=== PATIENT | male | born 1935 | race Caucasian/White ===

== ENCOUNTER 2016-06-23 16:40 | Emergency (ER) | payer OTHER ==
[~2016-06-23] VITALS: Ht 172.7 cm; Wt 76.7 kg
[~2016-06-23 16:40] MED LIST: ALFU10TA30 PO; AMT50 PO; ASPI81TA28 PO; ATOR10TA88 PO; BIMA0.038; CLX20 PO; GLC500 PO; LACT10SO17 PO; LINA1CAP PO; MULT-506 PO; [UNRECOGNIZED DRUG - OTHER] PO; alprazolam PO; systane
[2016-06-23 16:45] VITALS: Ht 172.7 cm; Wt 76.7 kg
--- NOTE | 2016-06-23 17:17 | EMERGENCY ROOM VISIT NOTE ---
History Report prepared by Andrew: Timothy Hernandez Under the Supervision of: Dr. Timothy Parker M.D. First contact with patient: 16:48 Chief Complaint: REFERRED BY DOCTOR Stated Complaint: ANXIETY ATTACKS, MENTAL HEALTH EVAL History of Present Illness The patient is a 81 year old male who presents to the Emergency Room with complaints of a mental health evaluation today. Per the spring encaser, he was sent in by his therapist in [place] for depression and suicidal ideations beginning in May 2016. Per the patient and his , he is in the process of divorce, and has had stress recently. He notes having anxiety attacks before in the past and a fear of being alone, as early as from 19 years of age. His therapist has provided medication to help with anxiety attacks. He admits to taking extra medication during the night when he is having difficulty sleeping. The patient denies taking Aspiring or Tylenol. He notes mild alcohol consumption. 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 He denies any history of heart disease. He will occasionally take a Naproxen for baseline hip pain. He has not been eating or sleeping well recently. The patient denies any chest pain or shortness of breath. His therapist sent him over to the ER today for suicidal ideations. The patient admits to having suicidal thoughts or plans to hurt himself. He notes the only thing he could think of would be to use a gun. Source of History: patient, spouse/significant other, nursing staff Onset: today Position: head Quality: other (mental health evaluation) Timing: other (episode) Associated Symptoms: No SOB, No chest pain Note: The patient denies having suicidal ideations. Review of Systems See HPI for pertinent positives & negatives. A total of 10 systems reviewed and were otherwise negative. Past Medical & Surgical Medical Problems: (1) History of anxiety (2) History of depression (3) Prostate cancer Old medical records were reviewed. Nurse's notes were reviewed and I agree with. Family History No pertinent family history stated. Social History Smoking Status: Never Smoker Marital Status: Current/Historical Medications Scheduled Alfuzosin Hcl (Uroxatral), 10 MG PO DAILY Alprazolam (Xanax), 1 MG PO QAM Alprazolam (Xanax), 0.25 MG PO prn ud Aspirin (Aspirin Ec), 81 MG PO DAILY Atorvastatin (Lipitor), 10 MG PO DAILY Brimonidine Tartrate-Timolol M (Combigan), 1 DROP OPB BID Linaclotide (Linzess), 1 TAB PO QAM Metformin Hcl (Glucophage), 500 MG PO BID Multivitamin (Multivitamin), 1 TAB PO DAILY Travoprost (Travatan Z), 1 DROPS OP HS Venlafaxine Hcl (Effexor Xr), 150 MG PO DAILY [fibertabs], 2 CAP PO DAILY Scheduled PRN Naproxen Tab (Naprosyn), 375 MG PO BID PRN for Pain Allergies Coded Allergies: Penicillins (Unverified Allergy, Unknown, RASH, 11/26/15) Physical Exam Vital Signs Date Time Temp Pulse Resp B/P Pulse Ox O2 Delivery O2 Flow Rate FiO2 06/23/16 19:23 36.7 94 16 138/86 96 06/23/16 16:45 36.7 107 16 148/98 94 Physical Exam General: Non ill appearing older male in no acute distress; somewhat flattened affect. HEENT: Normal cephalic atraumatic. Pupils are equal round and reactive to light. SCleara anicteric. Extraocular movements are intact. Oropharynx is pink with moist mucous membranes. No swelling of the mouth lips or tongue. Neck: Supple with a midline trachea. No meningeal signs or stiffness, no JVD or bruits. No Stridor. Chest: Clear to auscultation bilaterally. No wheezes or rhonchi. No increased work of breathing. Heart: regular rate and rhythm. Abdomen: Soft nontender, nondistended without rebound guarding or rigidity. Extremities: No cyanosis clubbing or edema. No calf tenderness or assymetry Spine/Back. Non tender to palpation. No CVA tenderness Skin: Good turgor without rashes. Neurologic exam: Cranial nerves two through 12 are intact. Motor and sensation are intact and symmetrical throughout. Psych: Somewhat flattened affect; has had suicidal ideations earlier today; denies homicidal ideations. Medical Decision & Procedures Laboratory Results 06/23/16 17:15 Red Blood Count 5.09, Mean Corpuscular Volume 88.0, Mean Corpuscular Hemoglobin 29.1, Mean Corpuscular Hemoglobin Concent 33.0, Mean Platelet Volume 9.6, Neutrophils (%) (Auto) 49.6, Lymphocytes (%) (Auto) 31.0, Monocytes (%) (Auto) 16.2, Eosinophils (%) (Auto) 2.8, Basophils (%) (Auto) 0.2, Neutrophils # (Auto ) 2.30, Lymphocytes # (Auto) 1.44, Monocytes # (Auto) 0.75, Eosinophils # (Auto ) 0.13, Basophils # (Auto) 0.01 06/23/16 17:15 Test 06/23/16 16:55 06/23/16 17:15 Urine Opiates Screen NEG (NEG) Urine Methadone, Qualitative NEG (NEG) Urine Barbiturates NEG (NEG) Urine Phencyclidine (PCP) Level NEG (NEG) Ur Amphetamine/Methamphetamine NEG (NEG) MDMA (Ecstasy) Screen NEG (NEG) Urine Benzodiazepines Screen POS (NEG) Urine Cocaine Metabolite NEG (NEG) Urine Marijuana (THC) NEG (NEG) White Blood Count 4.64 K/uL (4.8-10.8) Red Blood Count 5.09 M/uL (4.7-6.1) Hemoglobin 14.8 g/dL (14.0-18.0) Hematocrit 44.8 % (42-52) Mean Corpuscular Volume 88.0 fL (80-100) Mean Corpuscular Hemoglobin 29.1 pg (25-34) Mean Corpuscular Hemoglobin Concent 33.0 g/dl (32-36) Platelet Count 127 K/uL (130-400) Mean Platelet Volume 9.6 fL (7.4-10.4) Neutrophils (%) (Auto) 49.6 % Lymphocytes (%) (Auto) 31.0 % Monocytes (%) (Auto) 16.2 % Eosinophils (%) (Auto) 2.8 % Basophils (%) (Auto) 0.2 % Neutrophils # (Auto) 2.30 K/uL (1.4-6.5) Lymphocytes # (Auto) 1.44 K/uL (1.2-3.4) Monocytes # (Auto) 0.75 K/uL (0.11-0.59) Eosinophils # (Auto) 0.13 K/uL (0-0.5) Basophils # (Auto) 0.01 K/uL (0-0.2) RDW Standard Deviation 46.3 fL (36.4-46.3) RDW Coefficient of Variation 14.3 % (11.5-14.5) Immature Granulocyte % (Auto) 0.2 % Immature Granulocyte # (Auto) 0.01 K/uL (0.00-0.02) Anion Gap 7.0 mmol/L (3-11) Est Creatinine Clear Calc Drug Dose 43.8 ml/min Estimated GFR () 59.7 Estimated GFR (Non- 51.5 BUN/Creatinine Ratio 12.3 (10-20) Calcium Level 9.3 mg/dl (8.5-10.1) Total Bilirubin 0.4 mg/dl (0.2-1) Direct Bilirubin 0.1 mg/dl (0-0.2) Aspartate Amino Transf (AST/SGOT) 27 U/L (15-37) Alanine Aminotransferase (ALT/SGPT) 33 U/L (12-78) Alkaline Phosphatase 65 U/L (45-117) Total Protein 7.7 gm/dl (6.4-8.2) Albumin 4.1 gm/dl (3.4-5.0) Lipase 973 U/L (73-393) Thyroid Stimulating Hormone (TSH) 1.800 uIu/ml (0.300-4.500) Salicylates Level < 1.7 mg/dl (2.8-20) Acetaminophen Level < 2 ug/ml (10-30) Ethyl Alcohol mg/dL < 3.0 mg/dl (0-3) Laboratory studies as stated above per my review. ED Course 1657: Past medical records reviewed. The patient was evaluated in room A5, and a complete history and physical examination were performed. 1909: I reassessed the patient. He does not have any suicidal or homicidal ideations. I talked to the patient's and she also agrees with discharge. 1914: Upon reevaluation, the patient is doing well. I discussed the results and treatment plan with the patient. He verbalized agreement of the treatment plan. The patient was discharged home. Medical Decision Differentials include depression, anxiety, and electrolyte or metabolic abnormality. This patient comes in as described above. He has a long history of anxiety and depression. He's had trouble in the morning but does okay during the day. They have been adjusting his medications. Multiple blood testing was obtained for medical clearance. He has nothing to suggest infection or any acute electrolyte or metabolic abnormalities. His lipase is mildly elevated however he is nothing to suggest pancreatitis and the lipase at our hospital is often elevated. I do not think is causing his symptoms. He has nothing to suggest a toxicologic process. He was evaluated at length by Claudia from our psychiatric case management team. She does not feel he needs to come inpatient and the patient's also agrees.the patient and his both feel he is safe at home .he denies any suicidal or homicidal ideations. He's to follow-up with psychiatrist and call tomorrow to get in and return if: thoughts of hurting himself or others, worsening of symptoms, any new problems or concerns. They' re happy with the plan and he was discharged to home. Impression Primary Impression: Anxiety Additional Impression: Depression Scribe Attestation The scribe's documentation has been prepared under my direction and personally reviewed by me in its entirety. I confirm that the note above accurately reflects all work, treatment, procedures, and medical decision making performed by me. Departure Information Dispostion Home / Self-Care Referrals Dontrell Boucher MD (PCP) Patient Instructions My [facility] Additional Instructions Rest. Drink plenty of fluids. Return if: Worsening symptoms, thoughts of hurting himself or others, any new problems or concerns. Call your psychiatrist in the morning and arrange close follow-up this week. Problem Qualifiers
[2016-06-23] MEDS ORDERED: BRIM0.2S OPB (17:31)
[2016-06-23] MEDS ORDERED: ALPR1TAB3 PO (17:31)
[2016-06-23] MEDS ORDERED: NPR375 PO (17:31)
[2016-06-23] MEDS ORDERED: LINA1CAP PO (17:31)
[2016-06-23] MEDS ORDERED: VENL75CA PO (17:31)
[2016-06-23] MEDS ORDERED: TRAV0.00 OP (17:31)
[2016-06-23] MEDS ORDERED: ALPR-411 PO (17:31)
[2016-06-23 17:33] LABS: BASO % 0.2 %; BASO ABS # 0.01 K/uL (0-0.2); COMPLETE YES; EOS % 2.8 %; HEMATOCRIT 44.8 % (42-52); IG% 0.2 %; LYMPH ABS # 1.44 K/uL (1.2-3.4); MEAN CORPUSCULAR HEMOGLOBIN 29.1 pg (25-34); MEAN PLATELET VOLUME 9.6 fL (7.4-10.4); MONO % 16.2 %; NEUT % 49.6 %; PLATELET COUNT 127 K/uL (130-400); RED BLOOD COUNT 5.09 M/uL (4.7-6.1); WHITE BLOOD COUNT 4.64 K/uL (4.8-10.8)
[2016-06-23] MEDS ORDERED: GLC/500 PO (17:36)
[2016-06-23 17:37] LABS: BENZODIAZEPINE, URINE POS (NEG); COCAINE,URINE NEG (NEG); PHENCYCLIDINE, URINE NEG (NEG)
[2016-06-23 17:57] LABS: BUN/CREATININE RATIO 12.3 (10-20); CALCIUM 9.3 mg/dl (8.5-10.1); CREATININE 1.3 mg/dl (0.60-1.40); POTASSIUM 4.7 mmol/L (3.5-5.1)
[2016-06-23 18:07] LABS: ACETAMINOPHEN < 2 ug/ml (10-30)
[2016-06-23 18:08] LABS: THYROID STIMULATING HORMONE 1.8 uIu/ml (0.300-4.500)
[2016-06-23 19:23] VITALS: BP 138/86; PULSE 94; TEMP 36.7; O2SAT 96
[2016-06-27 08:54] LABS: HYDROXYETHYLFLURAZEPAM CONF NEGATIVE NG/ML (CUTOFF=50); HYDROXYMIDAZOLAM NEGATIVE NG/ML (CUTOFF=50); HYDROXYTRIAZOLAM CONF NEGATIVE NG/ML (CUTOFF=50); TEMAZEPAM CONF NEGATIVE NG/ML (CUTOFF=50)
== END 2016-06-23 19:24 | disposition home or self-care (01) ==
LOC: C.EDB 16:45 → C.EDA 19:24
DX: F41.8 Other specified anxiety disorders (principal); F32.9 Major depressive disorder, single episode, unspecified; Z86.59 Personal history of other mental and behavioral disorders; Z79.82 Long term (current) use of aspirin; Z79.899 Other long term (current) drug therapy